=== PATIENT | female | born 1995 | race Caucasian/White ===

== ENCOUNTER 2017-03-21 04:43 | Inpatient (IN) | payer OTHER ==
[2017-03-21 05:02] VITALS: BMI 25.8
[2017-03-21] MEDS ORDERED: Ibuprofen 800 MG TAB PO PRN (05:33)
[2017-03-21] MEDS ORDERED: HYDROcodone/Acetaminophen 5/325 mg Tablet PO PRN ×3 (05:33→13:13)
[2017-03-21] MEDS ORDERED: Lidocaine 1% (PF) 30 ML VIAL SC PRN (05:33)
[2017-03-21] MEDS ORDERED: Fentanyl 4 mcg/Marc 0.1% Cadd 100 ML ONE (05:35)
[2017-03-21 05:47] LABS: Hemoglobin 11.4 g/dL (12.0-16.0); Mean Corpuscular HGB CONC 32.5 g/dL (32.0-36.0); Mean Corpuscular Hemoglobin 28.8 pg (27.0-31.0); Mean Corpuscular Volume 88.7 fl (81.0-99.0); Mean Platelet Volume 10.6 fL (7.4-10.4); Platelet Count 145 thou/uL (130-400); RBC Distribution Width 12.1 % (11.5-14.5); Red Blood Cell (RBC) Count 3.94 mill/uL (4.20-5.40); White Blood Cell (WBC) Count 9.2 thou/uL (4.8-10.8)
[2017-03-21] MEDS ORDERED: CEFAZOLIN 1 GM in Sodium Chloride 0.9% 100 ML IVPB SCH (06:00)
[2017-03-21] MEDS ORDERED: Fentanyl 100 MCG/2 ML VIAL ONE (06:15)
[2017-03-21] MEDS ORDERED: diphenhydrAMINE 50 MG/ML VIAL IVP PRN (06:29)
[2017-03-21] MEDS ORDERED: Fentanyl 100 MCG/2 ML VIAL EPIDURAL PRN (06:29)
[2017-03-21] MEDS ORDERED: Naloxone HCl 0.4 mg/ml Vial IVP PRN ×2 (06:29)
[2017-03-21] MEDS ORDERED: Lactated Ringer's 500 ML IV PRN (06:29)
[2017-03-21] MEDS ORDERED: Acetaminophen 325 MG TAB PO PRN (06:29)
[2017-03-21] MEDS ORDERED: Ondansetron HCl/PF 4 MG/2 ML Vial IVP PRN ×2 (06:29→13:13)
[2017-03-21] MEDS ORDERED: Promethazine HCl 25 MG/ML VIAL IM PRN (06:29)
[2017-03-21] MEDS ORDERED: ePHEDrine/0.9% NaCl/PF SYRINGE 50 mg/10 ml SLOW IVP PRN (06:29)
[2017-03-21] MEDS ORDERED: Eucerin (Mineral Oil/Petrolatum,White) 30 gm Jar TOP PRN (06:29)
[2017-03-21 06:30] LABS: HBSAg Index 0.18 S/CO (0-0.99); HIV (1/2) Antibody/Antigen Non-Reactive (NonReactive); HIV 1/2 INDEX 0.09 S/CO (<1.00); Hep B Surf Ag Non-Reactive S/CO (NonReactive); Syphilis Antibody Nonreactive (Nonreactive); Syphilis Antibody Index 0.06 S/CO (<1.00 Non-Reactive)
[2017-03-21] MEDS ORDERED: Communication Order-Pharmacy FS SCH (06:30)
[2017-03-21] MEDS ORDERED: Fentanyl 4mcg/Marcaine 0.1% Cassette 100 ML EPIDURAL SCH (06:30)
[2017-03-21] MEDS ORDERED: Lactated Ringer's 1,000 ML IV SCH (07:15)
[2017-03-21] MEDS ORDERED: Lidocaine 1% (PF) 30 ML VIAL ONE (07:21)
[2017-03-21] MEDS: LR / Pitocin 40 units/1000 ml 1,000 ML IV PRN ×2 (08:45→10:51)
[2017-03-21] MEDS ORDERED: Milk Of Magnesia 30 ML UDCUP PO PRN (13:13)
[2017-03-21] MEDS ORDERED: Bisacodyl 10 MG SUPP PR PRN (13:13)
[2017-03-21] MEDS ORDERED: Lanolin Ointment 7 GM TUBE TOP PRN (13:13)
[2017-03-21] MEDS ORDERED: Benzocaine/Menthol 20-0.5% 60 ML CAN TOP PRN (13:13)
[2017-03-21] MEDS ORDERED: LR / Pitocin 40 units/1000 ml 1,000 ML IV SCH (13:13)
[2017-03-21] MEDS ORDERED: Preparation H Ointment 28 GM TUBE PR PRN (13:13)
[2017-03-21] MEDS ORDERED: diphenhydrAMINE 25 MG CAP PO PRN (13:13)
[2017-03-21] MEDS ORDERED: Acetaminophen/Codeine 30-300mg Tablet PO PRN (13:13)
[2017-03-21] MEDS ORDERED: Bupivacaine HCl 0.5%/Epinephrine 1:200,000/PF 30 ml Vial ONE (16:24)
[2017-03-21] MEDS: Ibuprofen 800 MG TAB PO SCH (18:35)
[2017-03-21] MEDS: Ferrous Sulfate 325 MG TAB PO SCH (18:35)
[2017-03-22] MEDS: Ibuprofen 800 MG TAB PO SCH ×2 (00:27→06:15)
[2017-03-22] MEDS: Docusate Calcium (SURFAK) 240 MG CAP PO SCH ×2 (00:28→09:21)
[2017-03-22 08:23] VITALS: BP 112/71; TEMP 98.7
[2017-03-22] MEDS ORDERED: Prenatal Vitamin 1 TAB PO SCH (09:00)
[2017-03-22] MEDS: Ferrous Sulfate 325 MG TAB PO SCH (09:21)
== END 2017-03-22 11:45 | disposition home or self-care (01) | DRG 775 ==
LOC: L&D/OP 04:43 → L&D 05:14 → 3SW 13:15
PROVIDERS: ADMIT Family Medicine; ATTEND Family Medicine
PROC: 10E0XZZ Delivery of Products of Conception, External Approach (ICD-10-PCS; principal; 2017-03-21)
DX: O80 Encounter for full-term uncomplicated delivery (principal); Z37.0 Single live birth; Z3A.38 38 weeks gestation of pregnancy
CPT/HCPCS: 51702; 85027; 86780; 87340; 87389; 99285; J0670; J0690; J2001; J3010

== ENCOUNTER 2018-10-22 15:56 | Outpatient (CLI) | payer OTHER ==
--- NOTE | 2018-10-22 18:07 | ULT ---
EXAM: OB ULTRASOUND: 10/22/18 HISTORY: Evaluate size, dates and anatomy. TECHNIQUE: Sagittal and transverse imaging of a gravid uterus is performed. FINDINGS: Suboptimal evaluation of the cervix due to shadowing. Vertex presentation. Posterior placenta. No previa. BIOMETRY: BPD 5.12 cm 21 weeks, 4 days Head circumference 18.93 cm 21 weeks, 2 days Abdominal circumference 16.65 cm 21 weeks, 5 days Femur length 3.62 cm 21 weeks, 4 days Average age by sonography 21 weeks, 4 days. heart tones at the rate of 152 beats per minute. SURVEY: The following structures are adequately assessed and have a normal appearance: Cord insertion, three vessel cord, urinary bladder, kidneys, cerebellum, ventricles, four chamber heart, stomach, spine. There is a hypoechoic focus involving the placenta which may represent a placental traore. weight is 433 grams. Amniotic fluid index is 13.3 cm. IMPRESSION: 1. Single intrauterine gestation with heart tones. Average age by sonography is 21 weeks, 4 days. 2. Posterior placenta. No previa. Placenta traore is noted. Short term follow-up imaging is recomm ended to assess the placental traore. 3. survey as above. Lips and nose were not seen. Remaining anatomy is within normal limits. 4. Suboptimal evaluation of the cervix due to shadowing. 1. POS: OFF
== END 2018-10-22 15:57 | disposition home or self-care (01) ==
LOC: BICULT 15:56
PROVIDERS: ATTEND Family Medicine
DX: Z34.82 Encounter for supervision of other normal pregnancy, second trimester (principal); Z3A.21 21 weeks gestation of pregnancy
CPT/HCPCS: 76805

== ENCOUNTER 2018-11-25 08:49 | Outpatient (CLI) | payer OTHER ==
--- NOTE | 2018-11-25 11:38 | ULT ---
ULTRASOUND OB FOLLOWUP: HISTORY: Placenta/nose and lips. COMPARISON: Ultrasound 10/22/2018. FINDINGS: Real-time, goldsmith scale, color, and spectral analysis of the gravid uterus was performed. Single viable intrauterine with average ultrasound age 26 weeks 2 days, estimated date of d elivery 03/01/2019. Estimated weight is 2 pounds, 28th percentile. BIOMETRY: Biparietal diameter: 6.41 cm, 26 weeks 0 days Head circumference: 24 cm, 26 weeks 1 day Abdominal circumference: 21.36 cm, 26 weeks 4 days Femur length: 4.92 cm, 26 weeks 4 days Amniotic fluid index: 13.7 cm. Cervical length: 3.7 cm. The placenta is posterior. No placenta previa. Presentation is cephalic. Amniotic fluid index 113.7 cm. The nose/lips, bladder, cord insertion, head, 4-chamber heart, stomach, and kidneys are visualized an d appear normal. Multiple placental lakes. IMPRESSION: Normal single viable intrauterine . POS: [facility]
== END 2018-11-25 08:50 | disposition home or self-care (01) ==
LOC: BICULT 08:49
PROVIDERS: ATTEND Family Medicine
DX: Z34.82 Encounter for supervision of other normal pregnancy, second trimester (principal); Z3A.26 26 weeks gestation of pregnancy
CPT/HCPCS: 76816

== ENCOUNTER 2019-02-24 14:37 | Inpatient (IN) | payer OTHER ==
[2019-02-24] MEDS ORDERED: hydrALAZINE 20 MG/ML VIAL SLOW IVP PRN ×2 (15:08→16:07)
[2019-02-24] MEDS ORDERED: NS / Oxytocin 40 units/1000ml 1,000 ML IV PRN (15:08)
[2019-02-24] MEDS ORDERED: HYDROcodone/Acetaminophen 5/325 mg Tablet PO PRN ×2 (15:08→16:07)
[2019-02-24] MEDS ORDERED: Lidocaine 1% (PF) 30 ML VIAL SC PRN (15:08)
[2019-02-24] MEDS ORDERED: Butorphanol Tartrate 1 MG/ML VIAL SLOW IVP PRN (15:08)
[2019-02-24] MEDS ORDERED: Ondansetron PF 4 MG/2 ML Vial IVP PRN ×2 (15:08→16:07)
[2019-02-24] MEDS ORDERED: Ibuprofen 800 MG TAB PO PRN (15:08)
[2019-02-24 15:14] VITALS: BMI 25.8
[2019-02-24] MEDS ORDERED: Lactated Ringer's 1,000 ML IV SCH ×2 (15:15)
[2019-02-24 15:29] LABS: Hemoglobin 11.7 g/dL (12.0-16.0); Mean Corpuscular HGB CONC 33.9 g/dL (32.0-36.0); Mean Corpuscular Hemoglobin 28.6 pg (27.0-31.0); Mean Corpuscular Volume 84.3 fL (78.0-98.0); Mean Platelet Volume 9.5 fL (7.4-10.4); Platelet Count 228 thou/uL (130-400); Red Blood Cell (RBC) Count 4.11 mill/uL (4.20-5.40); White Blood Cell (WBC) Count 10.1 thou/uL (4.8-10.8)
[2019-02-24 16:07] LABS: HBSAg Index 0.15 S/CO (0-0.99); Hep B Surf Ag Non-Reactive S/CO (NonReactive); Syphilis Antibody Nonreactive (Nonreactive); Syphilis Antibody Index 0.05 S/CO (<1.00 Non-Reactive)
[2019-02-24] MEDS ORDERED: Lanolin Ointment 7 GM TUBE TOP PRN (16:07)
[2019-02-24] MEDS ORDERED: NS / Oxytocin 40 units/1000ml 1,000 ML IV SCH (16:07)
[2019-02-24] MEDS ORDERED: Preparation H Ointment 28 GM TUBE PR PRN (16:07)
[2019-02-24] MEDS ORDERED: Bisacodyl 10 MG SUPP PR PRN (16:07)
[2019-02-24] MEDS ORDERED: Milk Of Magnesia 30 ML UDCUP PO PRN (16:07)
[2019-02-24] MEDS ORDERED: traMADol HCl 50 MG TAB PO PRN (16:07)
[2019-02-24] MEDS ORDERED: diphenhydrAMINE 25 MG CAP PO PRN (16:07)
[2019-02-24] MEDS ORDERED: Benzocaine-Menthol 82.5 ML CAN TOP PRN (16:07)
[2019-02-24] MEDS ORDERED: Promethazine HCl 25 MG/ML VIAL IM PRN (16:07)
[2019-02-24] MEDS: Ibuprofen 800 MG TAB PO SCH (16:52)
[2019-02-25] MEDS: Ferrous Sulfate 325 MG TAB PO SCH ×2 (05:39→07:08)
[2019-02-25] MEDS: Docusate Calcium (SURFAK) 240 MG CAP PO SCH ×2 (05:39→09:49)
[2019-02-25] MEDS: Ibuprofen 800 MG TAB PO SCH ×2 (05:40→14:17)
[2019-02-25] MEDS ORDERED: Prenatal Vitamin 1 TAB PO SCH (09:00)
[2019-02-25] MEDS ORDERED: FLU VACC QS2019-20(6MOS UP)/PF 60 MCG/0.5 ML SYRINGE IM ONE (09:00)
[2019-02-25 16:52] VITALS: BP 125/76; TEMP 98.6
== END 2019-02-25 16:50 | disposition home or self-care (01) | DRG 807 ==
LOC: L&D/OP 14:37 → L&D 15:56 → 3SE 20:15
PROVIDERS: ADMIT Family Medicine; ATTEND Family Medicine
PROC: 10E0XZZ Delivery of Products of Conception, External Approach (ICD-10-PCS; principal; 2019-02-24)
DX: O80 Encounter for full-term uncomplicated delivery (principal); Z37.0 Single live birth; Z3A.39 39 weeks gestation of pregnancy
CPT/HCPCS: 36415; 85027; 86780; 86850; 86900; 86901; 87340; J2001